=== PATIENT | male | born 1985 | race Caucasian/White ===

== ENCOUNTER 2016-10-31 14:32 | Emergency (ER) | payer BC ==
[2016-10-31 14:47] VITALS: BP 122/88
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
--- NOTE | 2016-11-01 06:52 | CR ---
Right hand: Five views of the right hand were obtained. Fractures are identified within the shafts of the third and fourth metacarpals. Alignment is close to anatomic. No additional fracture or other bony abnormality is seen. Soft tissue swelling is present. Impression: 1. Fractures within the shaft of the third and fourth metacarpals. 2. Soft tissue swelling. Diagnostic code #3
== END 2016-10-31 17:14 | disposition home or self-care (01) ==
LOC: JD.ED 14:32
DX: S62.352A Nondisplaced fracture of shaft of third metacarpal bone, right hand, initial encounter for closed fracture (principal); Z87.891 Personal history of nicotine dependence; V86.59XA Driver of other special all-terrain or other off-road motor vehicle injured in nontraffic accident, initial encounter
CPT/HCPCS: 29125; 73130-26-RT; 73130-RT; 99283; 99283-25

== ENCOUNTER 2019-01-04 19:33 | Emergency (ER) | payer SELFPAY ==
[2019-01-04 19:41] VITALS: BP 128/85
--- NOTE | 2019-01-04 20:29 | EDM.PDOC ---
ED HPI GENERAL MEDICAL PROBLEM - General Chief Complaint: Skin Complaint Stated Complaint: BITE UNK Time Seen by Provider: 01/04/19 20:05 Source of Information: Reports: Patient, RN Notes Reviewed History Limitations: Reports: No Limitations - History of Present Illness INITIAL COMMENTS - FREE TEXT/NARRATIVE: The patient states that he developed a lump in his right axilla 4 days ago. It appeared to be a pimple, so he popped it, recovering some purulent material, but it subsequently got worse and inflamed. 2 days ago the patient noticed an second bite to his mid right calf. It did not look like a pimple, therefore he did not pop it. The patient was seen at the walk-in clinic earlier today for his right axilla infection, and was prescribed doxycycline. He forgot to mention his right leg lesion, which has since become significantly more erythematous. No significant pain. No recent fever. No prior similar reactions to insect bites. The patient does not have a PCP. - Related Data Allergies Allergy/AdvReac Type Severity Reaction Status Date / Time No Known Allergies Allergy Verified 01/04/19 19:41 Home Meds: Home Meds Doxycycline [Vibramycin] 100 mg PO BID 01/04/19 [History] Past Medical History Musculoskeletal History: Reports: Fracture (right hand), Other (See Below) ( Right AC separation 2010) - Infectious Disease History Infectious Disease History: Reports: Chicken Pox - Past Surgical History HEENT Surgical History: Reports: Oral Surgery (Dental extractions - edentulous) Social & Family History - Family History Family Medical History: Noncontributory - Tobacco Use Smoking Status *Q: Current Every Day Smoker Years of Tobacco use: 18 Packs/Tins Daily: 0.5 Packs/Tins Daily Comment: Down from 1 ppd - Caffeine Use Caffeine Use: Reports: Coffee - Alcohol Use Alcohol Use History: Yes Alcohol Use Frequency: Socially - Recreational Drug Use Recreational Drug Use: Yes Drug Use in Last 12 Months: No Recreational Drug Type: Reports: Marijuana/Hashish (last smoked early 2017), Methamphetamine (last injected 2013), Psilocybin (Mushrooms) (last ate as a teenager) - Living Situation & Occupation Living situation: Reports: (), Alone Occupation: Employed ([employer]) ED ROS GENERAL - Review of Systems Review Of Systems: ROS reveals no pertinent complaints other than HPI. ED EXAM, SKIN/RASH Exam: See Below Exam Limited By: No Limitations General Appearance: Alert, WD/WN, No Apparent Distress Extremities: Other (There is a swollen area of erythema with purulent center in the patient's right axilla. There appears to be an insect bite to the anteromedial aspect of the right leg, with swelling and approximately 2.5 cm of induration. No purulent drainage. There is a larger area of erythema without induration, measuring approximately 20 cm in diameter, extending from a few centimeters above the indurated area, down the patient's leg. This area is warm to palpation, but there is no significant edema. Neurovascular status of the right lower extremity is intact.) Course - Vital Signs Last Recorded V/S: Last Vital Signs Temp 36.7 C 01/04/19 19:38 Pulse 100 01/04/19 19:38 Resp 16 01/04/19 19:38 BP 128/85 01/04/19 19:38 Pulse Ox 98 01/04/19 19:38 - Re-Assessments/Exams Free Text/Narrative Re-Assessment/Exam: 01/04/19 20:25 The patient appears to have an infection in his right axilla, and the doxycycline that he was prescribed earlier today appears to be appropriate. The area of induration and erythema on his right calf, however, is not likely an infection, rather, is most likely a local inflammatory reaction to an insect bite. The appropriate treatment for that is an antihistamine and cold compresses. It usually resolves within 12 days. Departure - Departure Time of Disposition: 20:26 Disposition: Home, Self-Care 01 Condition: Good Clinical Impression: Local reaction to insect sting - Discharge Information *PRESCRIPTION DRUG MONITORING PROGRAM REVIEWED*: Not Applicable *COPY OF PRESCRIPTION DRUG MONITORING REPORT IN PATIENT VIANNEY: Not Applicable Instructions: Bee, Wasp, or Hornet Sting, Adult Referrals: PCP,None [Primary Care Provider] - Forms: ED Department Discharge Additional Instructions: You were seen in the emergency room for redness surrounding a (likely) bug bite on your right calf. Based on your history and physical examination, your most likely suffering from a local inflammatory reaction to an insect bite. We recommend that you take an [id number] non-sedating antihistamine, such as Kaila, Zyrtec, or Claritin. Alternatively, you may take a sedating antihistamine, such as Benadryl. We recommend that you apply an ice pack to the area for 10-15 minutes, 5 times a day. This condition usually resolves within 12 days, however, you should expect similar, or worse, reactions every time you are bitten by a similar type of insect. We recommend that you continue to take the doxycycline for the infection in your right armpit. If any other problems, please do not hesitate to return to the ER.
== END 2019-01-04 20:37 | disposition home or self-care (01) ==
LOC: JD.ED 19:33
DX: L08.9 Local infection of the skin and subcutaneous tissue, unspecified (principal); F17.210 Nicotine dependence, cigarettes, uncomplicated; Z98.890 Other specified postprocedural states
CPT/HCPCS: 99281; 99282

== ENCOUNTER 2022-01-29 07:31 | Emergency (ER) | payer MEDICAID, OTHER ==
[2022-01-29 07:47] VITALS: BP 122/72; PULSE 65
[2022-01-29] MEDS ORDERED: Ondansetron 4 MG Tab.DIS PO ONE (07:48)
[2022-01-29] MEDS ORDERED: Acetaminophen/oxyCODONE 325-5 MG Tab PO ONE (07:48)
== END 2022-01-29 08:40 | disposition home or self-care (01) ==
LOC: JD.ED 07:31
DX: S83.412A Sprain of medial collateral ligament of left knee, initial encounter (principal); X50.1XXA Overexertion from prolonged static or awkward postures, initial encounter
CPT/HCPCS: 73562; 99283; A9270

== ENCOUNTER 2025-02-27 10:22 | Emergency (ER) | payer SELFPAY ==
[2025-02-27] MEDS: Acetaminophen/HYDROcodone 325-5 MG Tab PO ONE (12:08)
[2025-02-27] MEDS: Ondansetron 4 MG Tab.DIS PO ONE (12:09)
[2025-02-27 12:59] VITALS: BP 120/73; PULSE 52
== END 2025-02-27 12:30 | disposition home or self-care (01) ==
LOC: JD.ED 10:22
DX: S06.0X0A Concussion without loss of consciousness, initial encounter (principal); S02.40FA Zygomatic fracture, left side, initial encounter for closed fracture; S02.842A Fracture of lateral orbital wall, left side, initial encounter for closed fracture; Z79.899 Other long term (current) drug therapy; W01.198A Fall on same level from slipping, tripping and stumbling with subsequent striking against other object, initial encounter; Y93.67 Activity, basketball
CPT/HCPCS: 70450; 70486; 72125; 96372; 99283; A9270; J1171; J2765; 99284

== ENCOUNTER 2025-03-11 09:46 | Emergency (ER) | payer SELFPAY ==
[2025-03-11 09:55] VITALS: BP 125/86
[2025-03-11 11:05] VITALS: PULSE 99
== END 2025-03-11 10:50 | disposition home or self-care (01) ==
LOC: JD.ED 09:46
DX: K05.20 Aggressive periodontitis, unspecified (principal); Z79.899 Other long term (current) drug therapy
CPT/HCPCS: 99283